=== PATIENT | female | born 1970 | race Caucasian/White ===

== ENCOUNTER 2024-04-27 09:46 | Observation (INO) | payer OTHER ==
[2024-04-27 10:02] VITALS: BMI 26.6
[2024-04-27] MEDS ORDERED: ACETAMINOPHEN INJECTION 100 ML ONE (10:36)
[2024-04-27] MEDS ORDERED: MAG HYDROX/AL HYDROX/SIMETH 30 ML UNIT-DOSE CUP ONE (10:36)
[2024-04-27] MEDS ORDERED: ONDANSETRON 4 MG/2 ML VIAL ONE (10:37)
[2024-04-27] MEDS ORDERED: FAMOTIDINE 20 MG/50 ML IVPB 20 MG/50 ML MG IVPB ONE (10:37)
[2024-04-27 11:09] LABS: BASO % 0.7 % (0-2.0); EOS % 0.6 % (0-4.5); HEMATOCRIT 42.7 % (32.4-45.2); HEMOGLOBIN 14.1 GM/dL (10.7-15.3); LYMPH % 15.4 % (8-40); MCH 33.4 pg (25.7-33.7); MCHC 33.1 g/dl (32.0-36.0); MEAN PLT VOLUME 8.6 fl (7.5-11.1); NEUT % 75.3 % (42.8-82.8); PLATELET COUNT 358 10^3/uL (134-434); RBC 4.22 M/mm3 (3.60-5.2); RDW 14.6 % (11.6-15.6); WHITE BLOOD COUNT 6.8 K/mm3 (4.0-10.0)
[2024-04-27] MEDS: ACETAMINOPHEN 1000 MG/100 ML BAG IVPB ONE (11:19)
[2024-04-27] MEDS: MAG HYDROX/AL HYDROX/SIMETH 30 ML UNIT-DOSE CUP PO ONE (11:19)
[2024-04-27] MEDS: ONDANSETRON 4 MG/2 ML VIAL IVPUSH ONE (11:19)
[2024-04-27] MEDS: SODIUM CHLORIDE 1,000 ML IV STA (11:19)
[2024-04-27] MEDS: FAMOTIDINE 20 MG/50 ML IVPB 20 MG/50 ML MG IVPB ONE (11:19)
[2024-04-27 11:35] LABS: POTASSIUM 5.3 mmol/L (3.5-5.1)
[2024-04-27 11:38] LABS: ALBUMIN 4.5 g/dl (3.4-5.0); BLOOD UREA NITROGEN 13.1 mg/dL (7-18); MAGNESIUM 2.3 mg/dL (1.8-2.4)
[2024-04-27] MEDS ORDERED: METOCLOPRAMIDE HCL INJECTION 10 MG/2 ML VIAL ONE ×2 (11:41→13:04)
[2024-04-27 11:42] LABS: BILIRUBIN,TOTAL 0.9 mg/dL (0.2-1); CREATININE 0.8 mg/dL (0.55-1.3); PHOSPHOROUS 4.1 mg/dL (2.5-4.9)
[2024-04-27] MEDS: METOCLOPRAMIDE HCL INJECTION 10 MG/2 ML VIAL IVPUSH ONE ×2 (11:46→13:19)
[2024-04-27] MEDS ORDERED: DEXAMETHASONE SOD PHOSPHATE 10 MG/1 ML VIAL ONE (13:04)
[2024-04-27] MEDS: DEXAMETHASONE SOD PHOSPHATE 10 MG/1 ML VIAL IVPUSH ONE (13:19)
[2024-04-27 13:37] LABS: HIV INTERPRETATION NEGATIVE (NEGATIVE)
[2024-04-27] MEDS ORDERED: TRIMETHOBENZAMIDE HCL 200MG/2ML INJ IM PRN (17:32)
[2024-04-27] MEDS ORDERED: MAG HYDROX/AL HYDROX/SIMETH 30 ML UNIT-DOSE CUP PO PRN (17:35)
[2024-04-27] MEDS: DEXTROSE 5%-NORMAL SALINE 1,000 ML IV SCH (17:35)
[2024-04-27] MEDS ORDERED: LORazepam 2 MG/ML SDV VIAL IVPUSH PRN (17:51)
[2024-04-27] MEDS: PANTOPRAZOLE SODIUM 40 MG VIAL IVPUSH SCH (21:33)
[2024-04-27 23:10] LABS: URINE APPEARANCE CLEAR; URINE BILIRUBIN NEGATIVE (NEGATIVE); URINE COLOR YELLOW; URINE GLUCOSE (UA) NEGATIVE (NEGATIVE); URINE KETONE 15 mg/dl (NEGATIVE)
[2024-04-27 23:11] LABS: PH,URINE 5.5 (5.0-8.0); URINE LEUK ESTERASE NEGATIVE (NEGATIVE); URINE NITRITE NEGATIVE (NEGATIVE); URINE PROTEIN TRACE (NEGATIVE); URINE UROBILINOGEN 0.2 mg/dL (0.2-1.0)
[2024-04-27 23:14] LABS: COCAINE, UR NEGATIVE (NEGATIVE); URINE BARBITURATES NEGATIVE (NEGATIVE); URINE BENZODIAZEPINES NEGATIVE (NEGATIVE)
[2024-04-27 23:15] LABS: METHADONE, UR NEGATIVE (NEGATIVE); OPIATES, URI NEGATIVE (NEGATIVE); PHENCYCLIDINE,URINE NEGATIVE (NEGATIVE)
[2024-04-27 23:16] LABS: URINE AMPHETAMINES NEGATIVE (NEGATIVE)
[2024-04-28] MEDS: LACTATED RINGERS SOLUTION 1,000 ML IV STA (07:51)
[2024-04-28 09:02] LABS: HEMATOCRIT 34.8 % (32.4-45.2); HEMOGLOBIN 11.8 GM/dL (10.7-15.3); MCH 33.9 pg (25.7-33.7); MEAN CELL VOLUME 99.9 fl (80-96); MEAN PLT VOLUME 8.4 fl (7.5-11.1); PLATELET COUNT 278 10^3/uL (134-434); RBC 3.48 M/mm3 (3.60-5.2); RDW 14.4 % (11.6-15.6); WHITE BLOOD COUNT 6.8 K/mm3 (4.0-10.0)
[2024-04-28 09:19] LABS: POTASSIUM 3.7 mmol/L (3.5-5.1)
[2024-04-28 09:23] LABS: ALBUMIN 3.6 g/dl (3.4-5.0)
[2024-04-28 09:24] LABS: MAGNESIUM 2.3 mg/dL (1.8-2.4)
[2024-04-28 09:27] LABS: CREATININE 0.8 mg/dL (0.55-1.3)
[2024-04-28 09:28] LABS: BILIRUBIN,TOTAL 0.6 mg/dL (0.2-1); TOT PROT 7.1 g/dl (6.4-8.2)
[2024-04-28] MEDS: THIAMINE HCL 200 MG/2 ML VIAL IVPB SCH (09:56)
[2024-04-28] MEDS ORDERED: ENOXAPARIN NA (PORCINE) 40 MG/0.4 ML DISP.SYRIN SQ SCH (10:00)
[2024-04-28 11:33] VITALS: RESP 18
[2024-04-28] MEDS: FOLIC ACID 1 MG TABLET (FP) PO SCH (12:05)
[2024-04-28] MEDS: MULTIVITAMINS (DAILY MVI) TABLET (FP) PO SCH (12:05)
[2024-04-28 14:57] VITALS: TEMP 97.7
[2024-04-28 15:06] VITALS: BP 123/82; PULSE 75
== END 2024-04-28 17:07 | disposition home or self-care (01) ==
LOC: JER 09:46 → JERBED 16:52 → J8W 20:19
PROVIDERS: ADMIT Internal Medicine; ATTEND Internal Medicine
PROC: 3E033NZ Introduction of Analgesics, Hypnotics, Sedatives into Peripheral Vein, Percutaneous Approach (ICD-10-PCS; 2024-04-27)
PROC: 3E033GC Introduction of Other Therapeutic Substance into Peripheral Vein, Percutaneous Approach (ICD-10-PCS; 2024-04-27)
PROC: 3E0337Z Introduction of Electrolytic and Water Balance Substance into Peripheral Vein, Percutaneous Approach (ICD-10-PCS; 2024-04-27)
PROC: 3E033GC Introduction of Other Therapeutic Substance into Peripheral Vein, Percutaneous Approach (ICD-10-PCS; 2024-04-27)
PROC: 0DB28ZX Excision of Middle Esophagus, Via Natural or Artificial Opening Endoscopic, Diagnostic (ICD-10-PCS; 2024-04-28)
PROC: 0DB38ZX Excision of Lower Esophagus, Via Natural or Artificial Opening Endoscopic, Diagnostic (ICD-10-PCS; 2024-04-28)
PROC: 0DB48ZX Excision of Esophagogastric Junction, Via Natural or Artificial Opening Endoscopic, Diagnostic (ICD-10-PCS; principal; 2024-04-28 13:15)
DX: K20.90 Esophagitis, unspecified without bleeding (principal); R13.10 Dysphagia, unspecified; K22.2 Esophageal obstruction; R11.2 Nausea with vomiting, unspecified
CPT/HCPCS: 36415; 70491-TC; 71046-TC-FY; 74177-TC; 80053; 80307; 81003; 82607; 82746; 83605; 83690; 83735; 84100; 84484; 84703; 85025; 85027; 86803; 87389; 88305-TC; 93005; 93010; 99285-25; G0378; J0131; J1100